=== PATIENT | female | born 1990 | race African-American/Black ===

== ENCOUNTER 2016-11-10 11:46 | Emergency (ER) | payer OTHER ==
[~2016-11-10] VITALS: Ht 157.5 cm; Wt 69.6 kg
[2016-11-10 11:47] VITALS: BP 112/69
[2016-11-10] MEDS ORDERED: BENA25CA4 PO (12:13)
[2016-11-10] MEDS ORDERED: CYCL10TA PO (12:13)
[2016-11-10] MEDS ORDERED: ZYRT10TA2 PO (12:38)
[2016-11-10] MEDS ORDERED: PRED20TA PO (12:38)
== END 2016-11-10 12:47 | disposition home or self-care (01) ==
LOC: M ED 11:46
DX: L50.9 Urticaria, unspecified (principal); J30.2 Other seasonal allergic rhinitis; M79.1 Myalgia; F17.200 Nicotine dependence, unspecified, uncomplicated; Z91.013 Allergy to seafood

== ENCOUNTER 2016-11-19 06:48 | Emergency (ER) | payer OTHER ==
[~2016-11-19] VITALS: Ht 157.5 cm; Wt 71.3 kg
[~2016-11-19 06:48] MED LIST: BENA25CA4 PO; CYCL10TA PO; PRED20TA PO; ZYRT10TA2 PO
[2016-11-19] MEDS ORDERED: ACETAMINOPHEN 325 MG TAB PO ONE (07:30)
[2016-11-19] MEDS ORDERED: ONDANSETRON 4 MG ORAL DISINTEGRATING TAB (S0181) PO ONE (07:30)
[2016-11-19] MEDS ORDERED: KETOROLAC 60 MG/2 ML VIAL (J1885) IM ONE (07:30)
[2016-11-19] MEDS ORDERED: IBUP80TA PO (09:09)
[2016-11-19 09:14] VITALS: BP 113/65
== END 2016-11-19 09:16 | disposition home or self-care (01) ==
LOC: M ED 06:48
DX: N94.6 Dysmenorrhea, unspecified (principal); J45.909 Unspecified asthma, uncomplicated; N80.9 Endometriosis, unspecified; F17.200 Nicotine dependence, unspecified, uncomplicated; Z91.013 Allergy to seafood
CPT/HCPCS: 81001; 87086; 96372; 99282; J1885

== ENCOUNTER 2016-12-20 07:02 | Emergency (ER) | payer OTHER ==
[~2016-12-20] VITALS: Ht 157.5 cm; Wt 71.3 kg
[~2016-12-20 07:02] MED LIST changes: +IBUP80TA PO
[2016-12-20 08:12] LABS: BASO # 0.1 K/mm3 (0.0-0.2); BASO % 0.6 % (0.0-1.0); EOS # 0.4 K/mm3 (0.0-0.50); EOS % 4.2 % (0.0-3.0); LARGE UNSTAINED CELL # 0.2 K/mm3 (0.0-0.4); LARGE UNSTAINED CELL % 1.6 % (0.0-4.0); LYMPH % 18.5 % (24.0-44.0); MEAN CORPUSCULAR HGB CONC 33.1 g/dl (32.0-36.5); MEAN CORPUSCULAR VOLUME 87.8 fl (80.0-96.0); MONO # 0.6 K/mm3 (0.0-0.8); MONO % 5.6 % (0.0-5.0); NEUTROPHILS % 69.6 % (36.0-66.0); PLATELET COUNT, AUTOMATED 367 k/mm3 (150-450); RED CELL DISTRIBUTION WIDTH 12.4 % (11.5-14.5)
[2016-12-20 08:15] LABS: ANION GAP 9 MEQ/L (8-16); BLOOD UREA NITROGEN 4 MG/DL (7-18); CALCIUM LEVEL 8.6 MG/DL (8.5-10.1); CARBON DIOXIDE LEVEL 25 MEQ/L (21-32); CHLORIDE LEVEL 109 MEQ/L (98-107); CREATININE FOR GFR 0.65 MG/DL (0.55-1.02); GLOMERULAR FILTRATION RATE > 60.0 (>60); GLUCOSE, FASTING 90 MG/DL (70-105); POTASSIUM SERUM 3.7 MEQ/L (3.5-5.1); SODIUM LEVEL 143 MEQ/L (136-145)
[2016-12-20] MEDS ORDERED: BENZ200C53 PO (08:30)
[2016-12-20] MEDS ORDERED: AMOX500C PO (08:30)
--- NOTE | 2016-12-20 08:32 | REP ---
Clinical: bloody cough. Comparison: none. Technique: PA and lateral. Findings: The mediastinum and cardiac silhouette are normal. The lung calzada are clear and without acute consolidation, effusion, or pneumothorax. The skeletal structures are intact and normal. Impression: 1. No acute cardiopulmonary process. Signed by Glynn Jeffrey MD 12/20/2016 08:24 A
[2016-12-20 08:33] VITALS: BP 100/66
== END 2016-12-20 08:39 | disposition home or self-care (01) ==
LOC: M ED 07:02
DX: J02.0 Streptococcal pharyngitis (principal); R04.2 Hemoptysis; J45.909 Unspecified asthma, uncomplicated; Z91.013 Allergy to seafood

== ENCOUNTER 2017-12-28 02:13 | Emergency (ER) | payer OTHER | END 2017-12-28 06:27 | disposition home or self-care (01) | LOC: M ED 02:13 | DX: J02.9 Acute pharyngitis, unspecified (principal); J45.901 Unspecified asthma with (acute) exacerbation; N80.9 Endometriosis, unspecified; Z91.013 Allergy to seafood; F17.210 Nicotine dependence, cigarettes, uncomplicated | CPT/HCPCS: 87880 ==

== ENCOUNTER 2018-04-05 06:10 | Emergency (ER) | payer OTHER ==
[~2018-04-05] VITALS: Ht 157.5 cm; Wt 72.7 kg
[~2018-04-05 06:10] MED LIST changes: +ALL10TAB27 PO; +AMOX500C PO; +BENZ200C70 PO; +FLON1SPR NARES; +MAGICMW MT; +ZYRT10CA5 PO; -ZYRT10TA2 PO
[2018-04-05] MEDS ORDERED: IBUPROFEN 800 MG TAB PO ONE (06:45)
[2018-04-05 07:40] LABS: INFLUENZA A AMPLIFICATION NEGATIVE (NEGATIVE); INFLUENZA B AMPLIFICATION NEGATIVE (NEGATIVE)
[2018-04-05] MEDS ORDERED: MAGICMW MT (07:48)
[2018-04-05] MEDS ORDERED: PRED10TA2 PO (07:49)
[2018-04-05 08:03] VITALS: BP 114/68
== END 2018-04-05 08:05 | disposition home or self-care (01) ==
LOC: M ED 06:10
DX: J02.9 Acute pharyngitis, unspecified (principal); B34.9 Viral infection, unspecified; J45.909 Unspecified asthma, uncomplicated; N80.9 Endometriosis, unspecified; Z91.013 Allergy to seafood

== ENCOUNTER 2018-06-02 21:55 | Emergency (ER) | payer OTHER ==
[~2018-06-02] VITALS: Ht 157.5 cm; Wt 77.3 kg
[~2018-06-02 21:55] MED LIST changes: -ALL10TAB27 PO; +ALL10TAB28 PO; +PRED10TA2 PO
[2018-06-02 23:27] LABS: BASO # 0.1 10^3/uL (0.0-0.2); BASO % 0.5 % (0.0-1.0); EOS # 0.3 10^3/uL (0.0-0.50); EOS % 2.9 % (0.0-3.0); HEMATOCRIT 39.5 % (36.0-47.0); HEMOGLOBIN 13.1 g/dl (12.0-15.5); LYMPH # 3.1 10^3/uL (1.5-6.5); LYMPH % 32.4 % (24.0-44.0); MEAN CORPUSCULAR HEMOGLOBIN 27.9 pg (27.0-33.0); MEAN CORPUSCULAR HGB CONC 33.2 g/dl (32.0-36.5); MEAN CORPUSCULAR VOLUME 84.2 fl (80.0-96.0); MONO # 0.6 10^3/uL (0.0-0.8); MONO % 6.8 % (0.0-5.0); NEUTROPHILS # 5.4 10^3/uL (1.8-7.7); NEUTROPHILS % 57.1 % (36.0-66.0); PLATELET COUNT, AUTOMATED 356 10^3/uL (150-450); RED BLOOD COUNT 4.69 10^6/uL (4.00-5.40); WHITE BLOOD COUNT 9.5 10^3/uL (4.0-10.0)
[2018-06-02 23:45] LABS: BLOOD UREA NITROGEN 5 MG/DL (7-18); CALCIUM LEVEL 8.5 MG/DL (8.5-10.1); CARBON DIOXIDE LEVEL 25 MEQ/L (21-32); CHLORIDE LEVEL 106 MEQ/L (98-107); CREATININE FOR GFR 0.81 MG/DL (0.55-1.30); GLOMERULAR FILTRATION RATE > 60.0 (>60); GLUCOSE, FASTING 84 MG/DL (70-100); POTASSIUM SERUM 3.5 MEQ/L (3.5-5.1); SODIUM LEVEL 142 MEQ/L (136-145)
[2018-06-03] MEDS ORDERED: ISOVUE-370 76% 100ML VIAL (Q9967) As Ordered ONE (00:09)
[2018-06-03] MEDS ORDERED: NS 1,000 ML IV ONE (00:15)
--- NOTE | 2018-06-03 00:31 | REPVR ---
EXAM: CT Abdomen and Pelvis With Contrast EXAM DATE/TIME: 06/03/2018 12:04 AM CLINICAL HISTORY: 28 years old, female; Pain; Abdominal pain; Localized; Left lower quadrant (llq); Additional info: Llq pain, diarrhea TECHNIQUE: Axial computed tomography images of the abdomen and pelvis with intravenous contrast. All CT scans at this facility use at least one of these dose optimization techniques: automated exposure control; mA and/or kV adjustment per patient size (includes targeted exams where dose is matched to clinical indication); or iterative reconstruction. Coronal and sagittal reformatted images were created and reviewed. CONTRAST: Contrast Material: 100 ml of iso; Contrast Route: ac COMPARISON: No relevant prior studies available. FINDINGS: Lower thorax: No suspicious mass or airspace process in the visualized lung bases. ABDOMEN: Liver: Liver appears normal with no focal abnormality. Gallbladder and bile ducts: Gallbladder is present and shows no evidence of gallstone. Pancreas: Pancreas appears normal. No focal mass or peripancreatic inflammation. Spleen: Spleen appears homogeneous without focal mass. Adrenals: Adrenal glands are normal in appearance. Kidneys and ureters: Kidneys appear normal, with no stone, solid mass or hydronephrosis. Stomach and bowel: No evidence of small bowel obstruction. Multiple fluid-filled loops of nondilated bowel with enhancing mucosa are present. No evidence of acute diverticulitis. Appendix: Normal caliber appendix is identified, with no adjacent inflammation. PELVIS: Bladder: Bladder appears normal. Reproductive: Unremarkable as visualized. ABDOMEN and PELVIS: Intraperitoneal space: No pneumoperitoneum. Trace free fluid is present in the pelvis. Bones/joints: Bony structures show no acute fracture or destructive process. Soft tissues: Unremarkable. Vasculature: Main portal and splenic veins enhance normally. No aortic aneurysm. Lymph nodes: Normal. No enlarged lymph nodes. IMPRESSION: 1. Pattern of small bowel and colon suggests mild inflammatory or infectious enteritis without obstruction. 2. No evidence of appendicitis or diverticulitis. Electronically signed by: Luis Peters On 06/03/2018 00:30:59 AM
[2018-06-03 00:50] VITALS: BP 112/66
[2018-06-03] MEDS ORDERED: CIPR-249 PO (01:38)
[2018-06-03] MEDS ORDERED: FLAG500T PO (01:38)
[2018-06-03] MEDS ORDERED: ZOFR4TAB16 PO (01:38)
[2018-06-03] MEDS ORDERED: CIPROFLOXACIN 500 MG TAB PO ONE (01:45)
[2018-06-03] MEDS ORDERED: metroNIDAZOLE (FLAGYL) 500 MG TAB PO ONE (01:45)
== END 2018-06-03 01:57 | disposition home or self-care (01) ==
LOC: M ED 21:55
DX: K52.9 Noninfective gastroenteritis and colitis, unspecified (principal); R10.32 Left lower quadrant pain; K92.1 Melena; J45.909 Unspecified asthma, uncomplicated; N80.9 Endometriosis, unspecified; F17.200 Nicotine dependence, unspecified, uncomplicated; Z91.013 Allergy to seafood; Z79.899 Other long term (current) drug therapy
CPT/HCPCS: 74177; 80048; 81001; 81025; 85025; 96360; 96361; 99284; Q9967

== ENCOUNTER 2018-07-17 13:37 | Emergency (ER) | payer OTHER ==
[~2018-07-17] VITALS: Ht 157.5 cm; Wt 77.3 kg
[~2018-07-17 13:37] MED LIST changes: +CIPR-249 PO; +FLAG500T PO; +ZOFR4TAB16 PO
[2018-07-17] MEDS ORDERED: EPIP0.3I2 IM (13:48)
[2018-07-17] MEDS ORDERED: ACETAMINOPHEN 325 MG TAB PO ONE (14:00)
[2018-07-17 14:50] LABS: INFLUENZA A AMPLIFICATION POSITIVE (NEGATIVE); INFLUENZA B AMPLIFICATION NEGATIVE (NEGATIVE)
[2018-07-17] MEDS ORDERED: ALBUTEROL SULFATE 2.5 MG/0.5 ML INH NEB SOLN INH ONE (16:00)
[2018-07-17] MEDS ORDERED: OSELTAMIVIR PHOSPHATE 75 MG CAP (TAMIFLU) PO ONE (16:00)
[2018-07-17] MEDS ORDERED: IBUPROFEN 600 MG TAB PO ONE (16:00)
[2018-07-17 17:02] VITALS: BP 109/56
[2018-07-17] MEDS ORDERED: ALBU17IN2 INH (17:30)
[2018-07-17] MEDS ORDERED: ACET1TAB55 PO (17:30)
[2018-07-17] MEDS ORDERED: OSEL75CA PO (17:30)
[2018-07-17] MEDS ORDERED: IBUP-1022 PO (17:30)
== END 2018-07-17 17:43 | disposition home or self-care (01) ==
LOC: M ED 13:37
DX: J09.X2 Influenza due to identified novel influenza A virus with other respiratory manifestations (principal); F17.200 Nicotine dependence, unspecified, uncomplicated; Z91.013 Allergy to seafood